=== PATIENT | male | born 1995 | race Caucasian/White ===

== ENCOUNTER 2017-05-20 15:03 | Emergency (ER) | payer MEDICAID, OTHER ==
[2017-05-20 15:08] VITALS: BP 119/76; TEMP 98.4
--- NOTE | 2017-05-20 16:08 | RAD ---
PROCEDURE: Radiographs of the Left Shoulder HISTORY: r/o fx COMPARISON: No prior. FINDINGS: BONES: Normal. No fracture. JOINTS: Normal. Glenohumeral and acromioclavicular joints preserved. No osteoarthritis. SOFT TISSUES: Normal. OTHER FINDINGS: None. IMPRESSION: Normal radiographs of the left shoulder.
[2017-05-20 16:27] VITALS: PULSE 75; RESP 17; O2SAT 99
--- NOTE | 2017-05-20 18:34 | C.PDOC ---
History Of Present Illness 21 yr old male presents to the ER with complaints of left shoulder since yesterday. Denies trauma, injury, chest pain, SOB, back pain, neck pain, weakness or numbness. Denies taking any medicine. Time Seen by Provider: 05/20/17 15:20 Chief Complaint (Nursing): Upper Extremity Problem/Injury History Per: Patient History/Exam Limitations: no limitations Onset/Duration Of Symptoms: Days (1) Current Symptoms Are (Timing): Still Present Past Medical History Reviewed: Historical Data, Nursing Documentation, Vital Signs Vital Signs: Last Vital Signs Temp 98.4 F 05/20/17 15:07 Pulse 75 05/20/17 16:26 Resp 17 05/20/17 16:26 BP 119/76 05/20/17 15:07 Pulse Ox 99 05/20/17 18:37 Family History: States: No Known Family Hx - Social History Hx Tobacco Use: No Hx Alcohol Use: Yes Hx Substance Use: No - Immunization History Hx Influenza Vaccination: Yes Hx Pneumococcal Vaccination: Yes Review Of Systems Except As Marked, All Systems Reviewed And Found Negative. Cardiovascular: Negative for: Chest Pain Respiratory: Negative for: Shortness of Breath Musculoskeletal: Positive for: Shoulder Pain (Left shoulder ). Negative for: Neck Pain, Back Pain Neurological: Negative for: Weakness, Numbness Physical Exam - Physical Exam Appears: Non-toxic, No Acute Distress Skin: Warm, Dry, No Rash Head: Atraumatic, Normacephalic Oral Mucosa: Moist Neck: Normal, Normal ROM, Supple Chest: Symmetrical, No Tenderness Cardiovascular: Rhythm Regular, No Murmur Respiratory: Normal Breath Sounds, No Rales, No Rhonchi, No Stridor, No Wheezing Back: Normal Inspection, No CVA Tenderness Extremity: Normal ROM, No Swelling Neurological/Psych: Oriented x3, Normal Speech, Normal Motor ED Course And Treatment O2 Sat by Pulse Oximetry: 99 - Other Rad X-Ray - Left Shoulder X-Ray: Viewed By Me, Read By Radiologist Interpretation: PROCEDURE: Radiographs of the Left Shoulder. HISTORY: r/o fx. COMPARISON: No prior. FINDINGS: BONES: Normal. No fracture. JOINTS: Normal. Glenohumeral and acromioclavicular joints preserved. No osteoarthritis. SOFT TISSUES: Normal. OTHER FINDINGS: None. IMPRESSION: Normal radiographs of the left shoulder. Medical Decision Making Medical Decision Making: PLAN: * X-Ray - Left Shoulder * Motrin PO Disposition - Disposition Referrals: [facility] [Outside] [facility] [Outside] Disposition: HOME/ ROUTINE Disposition Time: 16:00 Condition: GOOD Additional Instructions: Thank you for letting us take care of you today. Your provider was Dr. Lazaro. You were treated for a shoulder sprain. The emergency medical care you received today was directed at your acute symptoms. If you were prescribed any medication, please fill it and take as directed. It may take several days for your symptoms to resolve. Return to the Emergency Department if your symptoms worsen, do not improve, or if you have any other problems. Please contact your doctor or call one of the physicians/clinics you have been referred to that are listed on the Patient Visit Information form that is included in your discharge packet. Bring any paperwork you were given at discharge with you along with any medications you are taking to your follow up visit. Our treatment cannot replace ongoing medical care by a primary care provider (PCP) outside of the emergency department. Thank you for allowing the [facility] team to be part of your care today. Follow up with the clinic in 3-4 days for outpatient care. Prescriptions: Ibuprofen [Motrin] 600 mg PO Q6 PRN #20 tab PRN Reason: Pain, Moderate (4-7) Instructions: Shoulder Sprain (ED) Forms: Gen Discharge Inst Ukrainian Print Language: BULGARIAN - Clinical Impression Clinical Impression: Shoulder sprain - Scribe Statement The provider has reviewed the documentation as recorded by the Obiibluis antonio Patel Provider Attestation: All medical record entries made by the Obiibluis antonio were at my direction and personally dictated by me. I have reviewed the chart and agree that the record accurately reflects my personal performance of the history, physical exam, medical decision making, and the department course for this patient. I have also personally directed, reviewed, and agree with the discharge instructions and disposition.
== END 2017-05-20 16:27 | disposition home or self-care (01) ==
LOC: C.ER 15:03
DX: S43.402A Unspecified sprain of left shoulder joint, initial encounter (principal); X58.XXXA Exposure to other specified factors, initial encounter; Y92.9 Unspecified place or not applicable

== ENCOUNTER 2017-12-06 09:20 | Emergency (ER) | payer MEDICAID ==
[2017-12-06 09:33] VITALS: RESP 18
[2017-12-06] MEDS ORDERED: Sodium Chloride 0.9% 1,000 ML IV ONE (09:49)
--- NOTE | 2017-12-06 10:09 | C.PDOC ---
History Of Present Illness 22 y/o male presents to ED with complaints of chest pain, cough, fever and sore throat since last night. Patient denies recent travel, abdominal pain, nausea, vomiting, sob or any other complaints at this time. Patient is UTD with flu vaccine Time Seen by Provider: 12/06/17 09:38 Chief Complaint (Nursing): Flu-like Symptoms History Per: Patient History/Exam Limitations: no limitations Onset/Duration Of Symptoms: Days Current Symptoms Are (Timing): Still Present Associated Symptoms: Fever, Sore Throat, Cough Past Medical History Reviewed: Historical Data, Nursing Documentation, Vital Signs Vital Signs: Last Vital Signs Temp 98.9 F 12/06/17 11:28 Pulse 92 H 12/06/17 11:28 Resp 18 12/06/17 11:28 BP 130/69 12/06/17 11:28 Pulse Ox 97 12/06/17 11:28 - Medical History PMH: No Chronic Diseases Surgical History: No Surg Hx Family History: States: No Known Family Hx - Social History Hx Tobacco Use: No Hx Alcohol Use: Yes Hx Substance Use: No - Immunization History Hx Influenza Vaccination: Yes Hx Pneumococcal Vaccination: Yes Review Of Systems Constitutional: Positive for: Fever. Negative for: Chills ENT: Positive for: Throat Pain (sore throat) Cardiovascular: Positive for: Chest Pain Respiratory: Positive for: Cough. Negative for: Shortness of Breath Gastrointestinal: Negative for: Nausea, Vomiting, Abdominal Pain Skin: Negative for: Rash Physical Exam - Physical Exam Appears: Non-toxic, No Acute Distress Skin: Normal Color, Warm, Dry, No Rash Head: Atraumatic, Normacephalic Eye(s): bilateral: Normal Inspection Ear(s): Bilateral: Normal Oral Mucosa: Moist Throat: Erythema, No Exudate, No Drooling Neck: Normal ROM, Supple Cardiovascular: Rhythm Regular Respiratory: Normal Breath Sounds, No Accessory Muscle Use, No Rales, No Rhonchi , No Wheezing Gastrointestinal/Abdominal: Soft, No Tenderness, No Guarding, No Rebound Extremity: Normal ROM, Capillary Refill (<2 seconds) Neurological/Psych: Oriented x3 ED Course And Treatment - Laboratory Results Result Diagrams: 12/06/17 10:16 12/06/17 10:16 ECG: Interpreted By Me, Viewed By Me ECG Rhythm: Sinus Tachycardia Rate From EC (BPM) O2 Sat by Pulse Oximetry: 98 (RA) Medical Decision Making Medical Decision Making: suspect viral syndrome- labs imaging pending 1120 pt observed well appearing in nad. on phone. asking for dc multiple times. labs unremarkable. advise outpt fu and return precautions. repeat vitals wnl. no leukoctysosi. high clinical suspicion for influenza will treat empiricaly Disposition - Disposition Referrals: [facility] [Outside] [facility] [Outside] [facility] [Outside] Disposition: HOME/ ROUTINE Disposition Time: 11:20 Condition: STABLE Additional Instructions: follow up with your doctor/clinic. return to er with worsening symptoms or concerns. Prescriptions: Oseltamivir [Tamiflu] 75 mg PO BID #10 cap Instructions: Viral Syndrome (ED) Forms: [employer] (Togolese) - Clinical Impression Clinical Impression: Influenza-like illness - Scribe Statement The provider has reviewed the documentation as recorded by the Scribluis antonio Ferrera All medical record entries made by the Scribe were at my direction and personally dictated by me. I have reviewed the chart and agree that the record accurately reflects my personal performance of the history, physical exam, medical decision making, and the department course for this patient. I have also personally directed, reviewed, and agree with the discharge instructions and disposition.
--- NOTE | 2017-12-06 10:21 | RAD ---
HISTORY: SOB COMPARISON: Chest x-ray performed 05/03/13 TECHNIQUE: Chest PA and lateral FINDINGS: LUNGS: No focal consolidation. Please note that chest x-ray has limited sensitivity for the detection of pulmonary masses. PLEURA: No significant pleural effusion identified. No definite pneumothorax . CARDIOVASCULAR: The cardiomediastinal silhouette appears within normal limits of size. OSSEOUS STRUCTURES: No acute osseous abnormality identified. VISUALIZED UPPER ABDOMEN: Mild elevation of the right hemidiaphragm. OTHER FINDINGS: None. IMPRESSION: No focal consolidation, significant pleural effusion, or definite pneumothorax identified.
[2017-12-06 10:27] LABS: BASO % 0.3 % (0.0-2.0); EOS % 0.6 % (0.0-4.0); HEMOGLOBIN 16.6 g/dL (12.0-18.0); LYMPH # 0.5 K/uL (1.0-4.3); MEAN CELL VOLUME 90.5 fL (80.0-94.0); MEAN CORPUSCULAR HEMOGLOBIN 31.2 pg (27.0-31.0); MEAN CORPUSCULAR HGB CONC 34.5 g/dL (33.0-37.0); MEAN PLATELET VOLUME 7.8 fL (7.2-11.7); MONO # 1.1 K/uL (0.0-0.8); NEUT # 6.2 K/uL (1.8-7.0); NEUT % 79.1 % (50.0-75.0); NRBC % 0.2 % (0.0-2.0); PLATELET COUNT 211 K/uL (130-400); RBC 5.31 Mil/uL (4.40-5.90); RED CELL DISTRIBUTION WIDTH 12.5 % (11.5-14.5); WHITE BLOOD COUNT 7.8 K/uL (4.8-10.8)
[2017-12-06 10:32] LABS: INR 1.2; PROTHROMBIN TIME 14.3 SECONDS (9.7-12.2)
[2017-12-06 10:36] LABS: INFLUENZA A B NEGATIVE FOR FLU A/B (NEGATIVE)
[2017-12-06 10:48] LABS: SQUAMOUS EPITHIAL < 1 /hpf (0-5); URINE BILIRUBIN NEGATIVE (NEGATIVE); URINE BLOOD NEGATIVE (NEGATIVE); URINE CLARITY Clear (Clear); URINE COLOR Yellow (YELLOW); URINE GLUCOSE (UA) NORMAL (Normal); URINE LEUKOCYTE ESTERASE NEG Leu/uL (Negative); URINE NITRATE NEGATIVE (NEGATIVE); URINE PROTEIN NEGATIVE (NEGATIVE); URINE UROBILINOGEN NORMAL mg/dL (0.2-1.0)
[2017-12-06 10:50] LABS: LYMPHOCYTE 4 % (20-40); MONOCYTE 10 % (0-10); NEUTROPHIL 86 % (50-75); PLATELET ESTIMATE NORMAL (NORMAL); TOTAL CELLS COUNTED 100
[2017-12-06 11:17] LABS: ALB/GLOB RATIO 1.3 (1.0-2.1); ALBUMIN 4.5 g/dL (3.5-5.0); ALT/SGPT 42 U/L (21-72); AST/SGOT 30 U/L (17-59); BLOOD UREA NITROGEN 8 mg/dL (9-20); CALCIUM 8.5 mg/dl (8.6-10.4); GFR AFRICAN-AMERICAN > 60; GFR NON-AFRICAN AMERICAN > 60
[2017-12-06 11:33] VITALS: BP 130/69; PULSE 92; TEMP 98.9
[2017-12-06 15:28] VITALS: O2SAT 98
--- NOTE | 2017-12-08 23:18 | CARD ---
APPROVED REPORT EKG Measurement Heart [id number] <Conclusion> Sinus tachycardia Biatrial enlargement Nonspecific ST abnormality Abnormal ECG
== END 2017-12-06 11:27 | disposition home or self-care (01) ==
LOC: C.ER 09:20
DX: J11.1 Influenza due to unidentified influenza virus with other respiratory manifestations (principal)
CPT/HCPCS: 71046; 80053; 81001; 85025; 85610; 85730; 87070; 87430; 87804; 99284; J7040

== ENCOUNTER 2018-09-15 14:51 | Emergency (ER) | payer MEDICAID, OTHER ==
[2018-09-15 14:56] VITALS: BMI 25.2
[2018-09-15 15:00] VITALS: BP 110/71; PULSE 72; RESP 18; TEMP 98.8; O2SAT 100
--- NOTE | 2018-09-15 16:35 | C.PDOC ---
History Of Present Illness 22 year old male with no significant past medical history presents to the emergency department complaining of sore throat for the last 3 days and left eye redness since yesterday. The sore throat is worse with swallowing. States that this morning when he woke up his left eye was crusted shut with small amounts of yellow discharge. Patient has not taken any medication for pain. Denies sick contacts or recent antibiotic use. Patient has not received a flu shot. Denies trauma, fevers, chills, throat swelling, difficulty breathing, eye pain, vision changes, headache, abdominal pain, nausea, vomiting, diarrhea, myalgias, back pain, neck pain, chest pain, palpitations, rash. Chief Complaint (Nursing): ENT Problem History Per: Patient History/Exam Limitations: None Onset/Duration Of Symptoms: Days Current Symptoms Are (Timing): Still Present Quality (Mouth/Throat): Swelling, Redness Symptoms Have Been: Continuous Severity: Moderate Pain Scale Rating Of: 6 Anticoagulant/Antiplatlet Use?: No Recent Aspirin Use: No Past Medical History Reviewed: Historical Data, Nursing Documentation, Vital Signs Vital Signs: Last Vital Signs Temp 98.8 F 09/15/18 14:56 Pulse 72 09/15/18 14:56 Resp 18 09/15/18 14:56 BP 110/71 09/15/18 14:56 Pulse Ox 100 09/15/18 14:56 - Medical History PMH: No Chronic Diseases Family History: States: Unknown Family Hx - Social History Hx Tobacco Use: No Hx Alcohol Use: Yes Hx Substance Use: No - Immunization History Hx Tetanus Toxoid Vaccination: No Hx Influenza Vaccination: No Hx Pneumococcal Vaccination: No Review Of Systems Except As Marked, All Systems Reviewed And Found Negative. Constitutional: Negative for: Fever, Chills Eyes: Positive for: Redness (left eye), Other (yellow drainage, crusting in AM of right eye). Negative for: Pain, Vision Change, Conjunctivae Inflammation, Eyelid Inflammation ENT: Positive for: Throat Pain. Negative for: Ear Pain, Ear Discharge, Nose Pain, Nose Discharge, Nose Congestion, Mouth Pain, Mouth Swelling Cardiovascular: Negative for: Chest Pain, Palpitations, Light Headedness Respiratory: Negative for: Cough, Shortness of Breath Gastrointestinal: Negative for: Nausea, Vomiting, Abdominal Pain, Diarrhea Genitourinary: Negative for: Dysuria, Frequency Musculoskeletal: Negative for: Neck Pain, Shoulder Pain, Arm Pain, Back Pain, Hand Pain, Leg Pain, Foot Pain Skin: Negative for: Rash Neurological: Negative for: Weakness, Numbness, Incoordination, Change in Speech, Seizures, Altered Mental Status, Headache, Dizziness Physical Exam - Physical Exam Appears: Well, Non-toxic, No Acute Distress Skin: Normal Color, Warm, Dry Head: Atraumatic, Normacephalic Eye(s): bilateral: PERRL, EOMI, right: Other (Right eye with mild injection. Small amount of yellow discharge. No proptosis. Normal vision both eyes. ), left: Normal Inspection Ear(s): Bilateral: Normal Nose: Normal, No Discharge, No Epistaxis Oral Mucosa: Moist Tongue: Normal Appearing, No Swelling, No Lesions Lips: Normal Appearing, No Swelling, No Erythema Teeth: Normal Dentition Gingiva: Normal Appearing Throat: Normal, Erythema (mild), Exudate (small amount right tonsil), No Drooling, No Mass, Other (tonsils mildly swollen bilaterally. No uvular deviation or soft palate edema. ) Neck: Normal, Normal ROM, Trachea Midline, No Midline Cervical Tenderness, No Paracervical Tenderness, No Other (meningeal signs) Lymphatic: Normal Exam, No Adenopathy Cardiovascular: Rhythm Regular Respiratory: Normal Breath Sounds, No Accessory Muscle Use, No Rales, No Rhonchi, No Stridor Gastrointestinal/Abdominal: Normal Exam, Bowel Sounds, Soft, No Tenderness Back: Normal Inspection, No Vertebral Tenderness, No Decreased ROM, No Muscle Spasm, No Paraspinal Tenderness Extremity: Normal ROM, No Tenderness, No Deformity, No Swelling Extremity: Bilateral: Atraumatic, No Pedal Edema, Normal Color And Temperature, Normal ROM Pulses: Left Radial: Normal, Right Radial: Normal Neurological/Psych: Oriented x3, Normal Speech, Normal Cognition, Normal Cranial Nerves, Normal Motor, Normal Sensation Gait: Steady ED Course And Treatment - Laboratory Results Lab Interpretation: Normal (Negative rapid strep) O2 Sat by Pulse Oximetry: 100 Medical Decision Making Medical Decision Making: Initial Plan: --Rapid strep --Throat culture Rapid Strep - Negative Impression: Conjunctivitis, Viral URI Plan: --Antibiotic eye drops --ibuprofen for pain --Followup optho within 2 days --Followup primary within 2 days --Return to ER if worsening symptoms Disposition Counseled Patient/Family Regarding: Studies Performed, Diagnosis, Need For Followup, Rx Given - Disposition Referrals: [facility] [Outside] Mic Nuno [Staff Provider] - Disposition: HOME/ ROUTINE Disposition Time: 16:31 Condition: STABLE Additional Instructions: Utilice las gotas de ananya cada 3 horas mientras que est despierto por 7 vogt Ollie ibuprofeno cada 6 horas segn sea necesario para el dolor de garganta Seguimiento con oculista dentro de 2 vogt. Seguimiento con la primaria o clnica dentro de 2 vogt Volver a ER si los sntomas empeoran Prescriptions: Polymyxin B Sulf/Trimethoprim [Polymyxin B-Tmp Eye Drops] 1 drop LEFTEYE Q3H 7 Days #1 bottle Instructions: Viral Upper Respiratory Infection, Adult (DC), Conjunctivitis (Pinkeye) Forms: [employer] (Mozambican) Print Language: YAKUT - POA Present On Arrival: None - Clinical Impression Clinical Impression: Conjunctivitis, Viral upper respiratory illness
== END 2018-09-15 16:43 | disposition home or self-care (01) ==
LOC: C.ER 14:51
DX: H10.9 Unspecified conjunctivitis (principal); J06.9 Acute upper respiratory infection, unspecified